=== PATIENT | male | born 1995 | race Two or more races ===

== ENCOUNTER 2017-01-22 12:07 | Emergency (ER) | payer OTHER ==
[2017-01-22] MEDS ORDERED: NS 1,000 ML IV ONE (12:34)
--- NOTE | 2017-01-22 12:35 | EDPHY ---
H & P Stated Complaint: Subj fever last Tuesday;sore throat,cough;"exhaustion" HPI/ROS: CHIEF COMPLAINT: Sore throat, fatigue HISTORY OF PRESENT ILLNESS: Patient complains of 1 week history of sore throat , fatigue, malaise and intermittent fever. This was a sudden onset. Constant duration. The fever is subjective it waxes and wanes. It does improve with anti-inflammatories. Sore throat is mild to moderate. It also waxes and wanes. No chest pain. No cough. Some lightheadedness and dizziness. Primarily he complains of weakness and fatigue. He says he is just exhausted. He has no abdominal pain. No urinary complaints. No bowel movement changes. No neck pain or stiffness. No other associated complaints or modifying factors. REVIEW OF SYSTEMS: Ten systems reviewed and are negative unless otherwise noted in the HPI PERTINENT MEDICAL HISTORY: Noncontributory EXAMINATION General Appearance: Alert, no distress Head: normocephalic, atraumatic Eyes: Pupils equal and round, no conjunctival pallor or injection ENT, Mouth: Mucous membranes moist. Uvula midline. Minimal posterior erythema. No edema. no abnormality of the floor of the mouth. Neck: Normal inspection, supple, non-tender. No meningismus or rigidity. Respiratory: Lungs are clear to auscultation. No wheezing, rhonchi or crackles. Cardiovascular: Regular rate and rhythm. No murmur. Pulses intact distally. Gastrointestinal: Abdomen is soft and nontender. No hepatosplenomegaly. Back: non-tender, no bony abnormalities Neurological: GCS is A&O, nonfocal, normal gait Skin: Warm and dry, no rash. No petechiae or purpura. Extremities: Nontender, no pedal edema Psychiatric: Mood and affect normal DIFFERENTIAL DIAGNOSES: Including but not limited to viral pharyngitis, infectious mononucleosis, strep pharyngitis, viral illness, dehydration, influenza MDM: 12:34 p.m. Occasional sore throat with body aches, fatigue intermittent fever. Patient says that he feels exhausted and has minimal energy. He has no chest pain. He has minimal cough. He is in no acute distress with normal vital signs. Monospot , rapid strep test have been ordered. 1:30 p.m. Rapid strep test and monitor test are negative. I will treat him with Zithromax given the 7 days duration of his sore throat. Vital signs remained well within normal limits. I will also provide Tylenol 3 with codeine for the pain and myalgia. He is to increase his fluid intake and follow up on campus for definitive care or here for worsening symptoms. He is comfortable with this plan and discharged home stable condition SUPERVISION: This patient was independently evaluated without direct examination by the attending physician. Case was discussed with attending physician. Source: Patient Exam Limitations: No limitations - Medical/Surgical History Hx Asthma: No Hx Chronic Respiratory Disease: No Hx Diabetes: No Hx Cardiac Disease: No Hx Renal Disease: No Hx Cirrhosis: No Hx Alcoholism: No Hx HIV/AIDS: No Hx Splenectomy or Spleen Trauma: No Other PMH: denies - Social History Smoking Status: Never smoked Constitutional: Initial Vital Signs Temperature (C) 97.5 F 01/22/17 12:11 Heart Rate 75 01/22/17 12:11 Respiratory Rate 16 01/22/17 12:11 Blood Pressure 106/79 01/22/17 12:11 O2 Sat (%) 99 01/22/17 12:11 O2 Delivery Mode Room Air Allergies/Adverse Reactions: No Known Allergies Allergy (Verified 01/22/17 12:11) Home Medications: Medication Instructions Recorded Acetaminophen/Codeine 300/30Mg 1 each PO Q6 PRN #15 tab 01/22/17 [Tylenol #3 (*)] Azithromycin [Zithromax] 250 mg PO DAILY #6 tab 01/22/17 Medical Decision Making - Data Points Laboratory Results: 01/22/17 01/22/17 01/22/17 Unknown 12:50 12:50 Monoscreen NEGATIVE (NEGATIVE) Group A Strep Screen NEGATIVE (NEGATIVE) Group A Strep DNA Pending Medications Given: Discontinued Medications Sodium Chloride (Ns) 1,000 mls @ 0 mls/hr IV ONCE ONE PRN Reason: Wide Open Stop: 01/22/17 12:35 Last Admin: 01/22/17 12:53 Dose: 1,000 mls Departure - Departure Disposition: Home, Routine, Self-Care Clinical Impression: Viral pharyngitis, Malaise Condition: Good Instructions: Pharyngitis (ED), Viral Syndrome (ED) Additional Instructions: Medications as discussed as needed. Increase fluid intake. Return to ER for worsening symptoms Referrals: NONE *PRIMARY CARE P,. [Primary Care Provider] - As per Instructions Taylor Rizo MD [Medical Doctor] - As per Instructions [facility] [[facility]] - As per Instructions Prescriptions: Acetaminophen/Codeine 300/30Mg [Tylenol #3 (*)] 1 each PO Q6 PRN #15 tab PRN Reason: Pain, Mild Azithromycin [Zithromax] 250 mg PO DAILY #6 tab
[2017-01-22 13:51] VITALS: BP 122/68; PULSE 71; RESP 18; TEMP 97.9; O2SAT 96
== END 2017-01-22 13:51 | disposition home or self-care (01) ==
DX: J02.8 Acute pharyngitis due to other specified organisms (principal); B97.89 Other viral agents as the cause of diseases classified elsewhere

== ENCOUNTER 2017-01-23 07:42 | Emergency (ER) | payer OTHER ==
[2017-01-23 07:49] VITALS: BP 102/67; PULSE 66; RESP 16; TEMP 98.2; O2SAT 96
--- NOTE | 2017-01-23 07:50 | EDPHY ---
H & P Stated Complaint: DIZZY HPI/ROS: CHIEF COMPLAINT: Dizziness. HISTORY OF PRESENT ILLNESS: The patient is a 21-year-old male who presents with dizziness that began this morning. He describes the dizziness as being fuzzy in the head, unable to concentrate, and sleepy. He denies any chest pain , palpitations, fainting, or spinning sensation. He was seen in the ER yesterday for sore throat, malaise, and fever and was prescribed Tylenol with Codeine and Azithromycin, which he began to take last night. He last took the codeine at 2 am. His sore throat is nearly gone. No fever, chills, chest pain, palpitations, vomiting, diarrhea, urinary complaints, headache, lightheadedness. REVIEW OF SYSTEMS: Aside from elements discussed in the HPI, a comprehensive 10-point review of systems was reviewed and is negative. PAST MEDICAL HISTORY: Denies. SOCIAL HISTORY: [employer] Student. VITAL SIGNS: Reviewed by me GENERAL: Well-developed, well-nourished, resting comfortably in no respiratory distress. HEENT: Atraumatic. Eyes: No icterus, no injection. Mouth: moist mucous membranes. No erythema or lesions. Neck: supple with no adenopathy. LUNGS: Clear to auscultation bilaterally, no wheezes, rhonchi or rales. CARDIAC: Regular rate and rhythm, no rubs, murmurs or gallops. ABDOMEN: Soft, nontender, nondistended, bowel sounds normal. BACK: No CVA tenderness. EXTREMITIES: No trauma. No edema. Range of motion is normal throughout. NEURO: Alert and oriented, grossly nonfocal. SKIN: Warm and dry, no rash. PSYCHIATRIC: Normal mentation, no agitation. Portions of this note were transcribed by a medical charge entry specialist. I personally performed a history, physical exam, medical decision making, and confirmed accuracy of information the transcribed note. Source: Patient Exam Limitations: No limitations - Personal History Current Tetanus/Diphtheria Vaccine: No - Medical/Surgical History Hx Asthma: No Hx Chronic Respiratory Disease: No Hx Diabetes: No Hx Cardiac Disease: No Hx Renal Disease: No Hx Cirrhosis: No Hx Alcoholism: No Hx HIV/AIDS: No Hx Splenectomy or Spleen Trauma: No Other PMH: denies - Social History Smoking Status: Never smoked Constitutional: Initial Vital Signs Temperature (C) 36.8 C 01/23/17 07:43 Heart Rate 66 01/23/17 07:43 Respiratory Rate 16 01/23/17 07:43 Blood Pressure 102/67 01/23/17 07:43 O2 Sat (%) 96 01/23/17 07:43 O2 Delivery Mode Room Air Allergies/Adverse Reactions: No Known Allergies Allergy (Verified 01/22/17 12:11) Home Medications: Medication Instructions Recorded Acetaminophen/Codeine 300/30Mg 1 each PO Q6 PRN #15 tab 01/22/17 [Tylenol #3 (*)] Azithromycin [Zithromax] 250 mg PO DAILY #6 tab 01/22/17 Medical Decision Making ED Course/Re-evaluation: I think this patient's dizziness is highly likely to be due to his taking Tylenol and Codeine. He appears well in the ER today and has a normal exam. I have recommended he stop taking the Tylenol/Codeine but continue to take the antibiotic. Patient was reassured shins. Again, his description of his dizziness is that he feels like he is sleepy can't the quite concentrated when trying to study. His vital signs are stable and he has a normal examination. Differential Diagnosis: Differential diagnosis of the patient's symptom complaint was considered including but not limited to dehydration, medication effect, fever, palpitations , electrolyte abnormalities. Departure - Departure Disposition: Home, Routine, Self-Care Clinical Impression: Dizziness Pharyngitis Qualifiers: Pharyngitis/tonsillitis etiology: unspecified etiology Qualified Code(s): J02.9 - Acute pharyngitis, unspecified Condition: Good Instructions: Pharyngitis (ED), Dizziness (ED) Additional Instructions: Continue to take the antibiotic but do not take the Tylenol with Codeine. Drink plenty of fluids and be sure to get rest. Take 600mg Ibuprofen every 6-8 hours as needed for pain. Return for any serious worsening of condition. Referrals: [facility] [[facility]] - As per Instructions Report Scribed for: Cathy Perkins Report Scribed by: Morales Salvador Date of Report: 01/23/17 Time of Report: 07:55
== END 2017-01-23 08:04 | disposition home or self-care (01) ==
DX: R42 Dizziness and giddiness (principal); J02.9 Acute pharyngitis, unspecified